=== PATIENT | female | born 1985 | race Caucasian/White ===

== ENCOUNTER 2017-11-21 16:09 | Emergency (ER) | payer MEDICAID ==
[~2017-11-21] VITALS: Ht 167.6 cm; Wt 106.7 kg
[~2017-11-21 16:09] MED LIST: GABA300C; MULT-464 PO; SUMA50TA3
[2017-11-21 16:35] LABS: BASOPHILS # (AUTO) 0.01 x10^3/uL (0-0.1); BASOPHILS % (AUTO) 0 % (0-1); EOSINOPHILS # (AUTO) 0.09 x10^3/uL (0-0.4); EOSINOPHILS % (AUTO) 1 % (1-7); LYMPHOCYTES # (AUTO) 1.63 x10^3/uL (1-3.4); LYMPHOCYTES % (AUTO) 17 % (22-44); MD NO; MEAN CORPUSCULAR HEMOGLOBIN 29.4 pg (27.0-34.8); MEAN CORPUSCULAR HGB CONC 34.3 g/dL (32.4-35.8); MEAN CORPUSCULAR VOLUME 85.8 fL (80-100); MEAN PLATELET VOLUME 8.9 fL (7.4-10.4); MONOCYTES # (AUTO) 0.29 x10^3/uL (0.2-0.8); MONOCYTES % (AUTO) 3 % (2-9); NEUTROPHILS # (AUTO) 7.52 x10^3/uL (1.8-6.8); NEUTROPHILS % (AUTO) 79 % (42-75); PLATELET COUNT 318 x10^3/uL (130-400); RED BLOOD COUNT 4.44 x10^6/uL (3.82-5.3); RED CELL DISTRIBUTION WIDTH 13.7 % (9.6-15.2)
[2017-11-21 16:46] LABS: ALANINE AMINOTRANSFERASE 15 U/L (12-78); ALBUMIN 2.5 g/dL (3.4-5.0); ANION GAP 9 mmol/L (5-15); CALCIUM 8.3 mg/dL (8.5-10.1); CHLORIDE 106 mmol/L (98-107); CREATININE 0.57 mg/dL (0.55-1.02)
[2017-11-21 17:03] LABS: ALKALINE PHOSPHATASE 122 U/L (45-117); BILIRUBIN,TOTAL 0.2 mg/dL (0.2-1.0); TOTAL PROTEIN 6.7 g/dL (6.4-8.2)
[2017-11-21 19:23] VITALS: BP 156/78
[2017-11-21 20:01] LABS: MICROSCOPIC AUTO
[2017-11-21 20:03] LABS: CULTURE INDICATED? YES
== END 2017-11-21 21:07 ==
LOC: ED 21:01
DX: O23.12 Infections of bladder in pregnancy, second trimester (principal); N30.90 Cystitis, unspecified without hematuria; Z3A.16 16 weeks gestation of pregnancy
CPT/HCPCS: 36415; 76815; 80053; 81001; 84702; 85025; 87086; 99285

== ENCOUNTER 2018-03-03 16:33 | Outpatient (CLI) | payer MEDICAID ==
[~2018-03-03] VITALS: Ht 167.6 cm; Wt 111.4 kg
[2018-03-03 17:01] VITALS: BP 112/66
[2018-03-03 18:06] LABS: MICROSCOPIC INDICATED
[2018-03-03] MEDS ORDERED: NITR100C56 PO (19:27)
== END 2018-03-03 19:41 | disposition home or self-care (01) ==
LOC: LDOP 16:33
PROVIDERS: ATTEND Student in an Organized Health Care Education/Training Program
DX: O26.899 Other specified pregnancy related conditions, unspecified trimester (principal); R25.2 Cramp and spasm; Z3A.00 Weeks of gestation of pregnancy not specified
CPT/HCPCS: 36415; 59025; 81001; 82731; 87086; 99211; G0463

== ENCOUNTER 2018-04-23 05:37 | Inpatient (IN) | payer MEDICAID ==
[~2018-04-23] VITALS: Ht 167.6 cm; Wt 125.0 kg
[~2018-04-23 05:37] MED LIST changes: +NITR100C56 PO
[2018-04-23] MEDS ORDERED: OXYTOCIN 30U/ 0.9% NaCL 500ML 500 ML IV SCH (05:41)
[2018-04-23] MEDS ORDERED: NEWBORN KIT ONE (05:42)
[2018-04-23] MEDS ORDERED: OXYTOCIN 30U/ 0.9% NaCL 500ML 0 ML ONE (05:43)
[2018-04-23] MEDS ORDERED: METOCLOPRAMIDE 5 MG/ML, 2ML ONE (05:43)
[2018-04-23] MEDS ORDERED: SODIUM CITRATE/CITRIC ACID 30 ML UDC ONE (05:43)
[2018-04-23] MEDS ORDERED: LACTATED RINGERS 1,000 ML IVBOLUS ONE (06:00)
[2018-04-23] MEDS ORDERED: ONDANSETRON 2MG/ML, 2ML IVPush ONE (06:00)
[2018-04-23] MEDS: LACTATED RINGERS 1,000 ML IV SCH ×8 (06:00→19:04)
[2018-04-23] MEDS ORDERED: METOCLOPRAMIDE 5 MG/ML, 2ML IV ONE (06:00)
[2018-04-23] MEDS ORDERED: PLEASE ENTER HEIGHT AND WEIGHT MC SCH (06:00)
[2018-04-23] MEDS ORDERED: CALCIUM CARBONATE 500 MG TAB.CHEW PO PRN (06:00)
[2018-04-23] MEDS ORDERED: SODIUM CITRATE/CITRIC ACID 30 ML UDC PO ONE (06:00)
[2018-04-23 06:09] LABS: BASOPHILS # (AUTO) 0.03 x10^3/uL (0-0.1); BASOPHILS % (AUTO) 0 % (0-1); EOSINOPHILS # (AUTO) 0.03 x10^3/uL (0-0.4); EOSINOPHILS % (AUTO) 0 % (1-7); LYMPHOCYTES # (AUTO) 1.64 x10^3/uL (1-3.4); LYMPHOCYTES % (AUTO) 22 % (22-44); MD NO; MEAN CORPUSCULAR HEMOGLOBIN 29.3 pg (27.0-34.8); MEAN CORPUSCULAR HGB CONC 34.4 g/dL (32.4-35.8); MEAN CORPUSCULAR VOLUME 85.2 fL (80-100); MEAN PLATELET VOLUME 10.7 fL (7.4-10.4); MONOCYTES # (AUTO) 0.33 x10^3/uL (0.2-0.8); MONOCYTES % (AUTO) 4 % (2-9); NEUTROPHILS # (AUTO) 5.35 x10^3/uL (1.8-6.8); NEUTROPHILS % (AUTO) 73 % (42-75); PLATELET COUNT 226 x10^3/uL (130-400); RED BLOOD COUNT 4.21 x10^6/uL (3.82-5.3); RED CELL DISTRIBUTION WIDTH 15.3 % (9.6-15.2)
[2018-04-23 06:21] LABS: ALANINE AMINOTRANSFERASE 15 U/L (12-78); ANION GAP 11 mmol/L (5-15); CALCIUM 8.3 mg/dL (8.5-10.1); CHLORIDE 111 mmol/L (98-107); CREATININE 0.65 mg/dL (0.55-1.02)
[2018-04-23 06:23] LABS: ALKALINE PHOSPHATASE 223 U/L (45-117); BILIRUBIN,TOTAL 0.2 mg/dL (0.2-1.0); TOTAL PROTEIN 6.3 g/dL (6.4-8.2)
[2018-04-23 06:25] LABS: BILIRUBIN, DIRECT < 0.1 mg/dL (0.1-0.2)
[2018-04-23 06:32] LABS: CULTURE INDICATED? YES; MICROSCOPIC INDICATED
[2018-04-23 06:42] LABS: AMPHETAMINE SCREEN, URINE Negative (Negative); BARBITURATE SCREEN, URINE Negative (Negative); BENZODIAZEPINE SCREEN, URINE Negative (Negative); CANNABINOID SCREEN, URINE Positive (Negative); COCAINE SCREEN, URINE Negative (Negative); METHADONE SCREEN, URINE Negative (Negative); OPIATE SCREEN, URINE Negative (Negative)
[2018-04-23 06:48] LABS: HEMOGLOBIN A1C 5.3 % (4.2-6.3)
[2018-04-23] MEDS ORDERED: OXYTOCIN 30U/ 0.9% NaCL 500ML 500 ML ONE (07:06)
[2018-04-23] MEDS ORDERED: MISOPROSTOL 200 MCG TABLET ONE (07:10)
[2018-04-23] MEDS ORDERED: EPHEDRINE 50 MG/ML, 1ML IVPush PRN (07:30)
[2018-04-23] MEDS ORDERED: hydrALAzine 20 MG/ML, 1ML IV PRN (07:30)
[2018-04-23] MEDS ORDERED: MEPERIDINE/PF 25MG/0.5ML IVPush PRN (07:30)
[2018-04-23] MEDS ORDERED: LABETALOL 5MG/ML, 20ML IV PRN (07:30)
[2018-04-23] MEDS ORDERED: OXYcodone 5 MG/5 ML ORAL.SOL UDC PO PRN (07:30)
[2018-04-23] MEDS ORDERED: ONDANSETRON ODT 8 MG PO PRN (07:30)
[2018-04-23] MEDS ORDERED: FENTANYL PF 100 MCG/2ML IV PRN (07:30)
[2018-04-23] MEDS ORDERED: ONDANSETRON 2MG/ML, 2ML IV PRN ×2 (07:30→09:30)
[2018-04-23] MEDS ORDERED: KETOROLAC 30 MG/1 ML ONE (07:38)
[2018-04-23] MEDS ORDERED: EPHEDRINE 50 MG/ML, 1ML ONE (08:39)
[2018-04-23] MEDS ORDERED: CEFAZOLIN 1,000 MG ONE (08:39)
[2018-04-23] MEDS ORDERED: EPINEPHRINE SYRINGE 0.1 MG/ML, 10ML ONE (08:39)
[2018-04-23] MEDS ORDERED: OXYTOCIN 10 UNITS/ML, 1ML ONE (08:39)
[2018-04-23] MEDS: OXYTOCIN 30U/ 0.9% NaCL 500ML 500 ML IV SCH ×2 (09:04→19:04)
[2018-04-23] MEDS ORDERED: METOCLOPRAMIDE 5 MG/ML, 2ML IV PRN (09:30)
[2018-04-23] MEDS ORDERED: KETOROLAC 30 MG/1 ML IM SCH (09:30)
[2018-04-23] MEDS ORDERED: MISOPROSTOL 200 MCG TABLET PR PRN (09:30)
[2018-04-23] MEDS ORDERED: IBUPROFEN 800 MG TABLET PO PRN (09:30)
[2018-04-23] MEDS ORDERED: CARBOPROST TROMETHAMINE 250 MCG/ML, 1ML IM PRN (09:30)
[2018-04-23] MEDS ORDERED: GLYCERIN ADULT SUPP PR PRN (09:30)
[2018-04-23] MEDS ORDERED: BISACODYL 10 MG SUPP PR PRN (09:30)
[2018-04-23] MEDS ORDERED: MORPHINE SULFATE 4 MG/ML, 1ML ONE ×2 (09:32→10:52)
[2018-04-23] MEDS ORDERED: OXYcodone 5 MG/5 ML ORAL.SOL UDC ONE (09:32)
[2018-04-23] MEDS: MORPHINE SULFATE 4 MG/ML, 1ML IVPush PRN ×2 (09:34→10:57)
[2018-04-23 11:10] VITALS: BP 136/89
[2018-04-23] MEDS: OXYcodone IR 5MG TABLET PO PRN ×3 (12:04→20:58)
[2018-04-23] MEDS: KETOROLAC 30 MG/1 ML IV SCH ×3 (13:32→19:50)
[2018-04-23 16:00] VITALS: BP 138/88
[2018-04-23 16:23] LABS: BASOPHILS # (AUTO) 0.02 x10^3/uL (0-0.1); BASOPHILS % (AUTO) 0 % (0-1); EOSINOPHILS % (AUTO) 0 % (1-7); LYMPHOCYTES # (AUTO) 1.27 x10^3/uL (1-3.4); LYMPHOCYTES % (AUTO) 14 % (22-44); MD NO; MEAN CORPUSCULAR HEMOGLOBIN 28.8 pg (27.0-34.8); MEAN CORPUSCULAR HGB CONC 33.5 g/dL (32.4-35.8); MEAN CORPUSCULAR VOLUME 86.2 fL (80-100); MEAN PLATELET VOLUME 10.5 fL (7.4-10.4); MONOCYTES # (AUTO) 0.51 x10^3/uL (0.2-0.8); MONOCYTES % (AUTO) 6 % (2-9); NEUTROPHILS # (AUTO) 7.22 x10^3/uL (1.8-6.8); NEUTROPHILS % (AUTO) 80 % (42-75); PLATELET COUNT 203 x10^3/uL (130-400); RED BLOOD COUNT 4.03 x10^6/uL (3.82-5.3); RED CELL DISTRIBUTION WIDTH 15.6 % (9.6-15.2)
[2018-04-23] MEDS: morphine SULFATE 10 MG/ML, 1ML IVPush PRN (18:43)
[2018-04-23 19:45] VITALS: BP 156/88
[2018-04-23] MEDS: DOCUSATE 100 MG CAPSULE PO PRN (19:50)
[2018-04-23] MEDS: ACETAMINOPHEN 325 MG TABLET PO PRN (20:58)
[2018-04-23] MEDS: ONDANSETRON ODT 4 MG PO PRN (21:05)
[2018-04-23] MEDS ORDERED: RHOGAM FROM BLOOD BANK 1 NOTE EA IM/IV ONE (22:00)
[2018-04-23 23:59] VITALS: BP 129/80
[2018-04-24] MEDS: LACTATED RINGERS 1,000 ML IV SCH ×5 (01:04→17:04)
[2018-04-24] MEDS: ACETAMINOPHEN 325 MG TABLET PO PRN ×2 (01:32→20:11)
[2018-04-24] MEDS: KETOROLAC 30 MG/1 ML IV SCH ×4 (01:32→20:12)
[2018-04-24] MEDS: OXYcodone IR 5MG TABLET PO PRN ×5 (01:32→20:12)
[2018-04-24 04:15] VITALS: BP 148/89
[2018-04-24] MEDS: morphine SULFATE 10 MG/ML, 1ML IVPush PRN (04:34)
[2018-04-24] MEDS: OXYTOCIN 30U/ 0.9% NaCL 500ML 500 ML IV SCH ×2 (05:04→15:04)
[2018-04-24] MEDS: ONDANSETRON ODT 4 MG PO PRN (06:08)
[2018-04-24 07:00] VITALS: BP 129/86
[2018-04-24] MEDS: PRENATAL VIT/IRON/FA 1 EACH TABLET PO SCH (07:39)
[2018-04-24] MEDS: DOCUSATE 100 MG CAPSULE PO PRN ×2 (07:39→20:11)
[2018-04-24 09:45] VITALS: BP 150/95
[2018-04-24 10:45] VITALS: BP 152/99
[2018-04-24 15:45] VITALS: BP 140/98
[2018-04-24 20:00] VITALS: BP 164/89
[2018-04-24] MEDS ORDERED: SIMETHICONE 80 MG CHEW TAB ONE (23:23)
[2018-04-24] MEDS: SIMETHICONE 80 MG CHEW TAB PO PRN (23:27)
[2018-04-25] VITALS (9 sets, daily range): BP systolic 138–169; BP diastolic 81–117
[2018-04-25] MEDS: OXYcodone IR 5MG TABLET PO PRN ×6 (00:38→20:33)
[2018-04-25] MEDS: LACTATED RINGERS 1,000 ML IV SCH ×6 (01:04→15:06)
[2018-04-25] MEDS: OXYTOCIN 30U/ 0.9% NaCL 500ML 500 ML IV SCH ×3 (01:04→17:25)
[2018-04-25] MEDS: KETOROLAC 30 MG/1 ML IV SCH (03:09)
[2018-04-25] MEDS: ACETAMINOPHEN 325 MG TABLET PO PRN ×4 (03:09→20:33)
[2018-04-25] MEDS ORDERED: IBUPROFEN 600 MG TABLET PO PRN (09:00)
[2018-04-25] MEDS: PRENATAL VIT/IRON/FA 1 EACH TABLET PO SCH (09:07)
[2018-04-25] MEDS: DOCUSATE 100 MG CAPSULE PO PRN ×2 (09:08→20:32)
[2018-04-25] MEDS: SIMETHICONE 80 MG CHEW TAB PO PRN ×2 (09:08→16:17)
[2018-04-25] MEDS ORDERED: LABETALOL 200 MG TABLET PO ONE (12:59)
[2018-04-25] MEDS ORDERED: LABETALOL 200 MG TABLET ONE (13:11)
[2018-04-25 13:51] LABS: ANION GAP 11 mmol/L (5-15); CHLORIDE 105 mmol/L (98-107)
[2018-04-25 13:52] LABS: BASOPHILS # (AUTO) 0.04 x10^3/uL (0-0.1); BASOPHILS % (AUTO) 0 % (0-1); EOSINOPHILS # (AUTO) 0.13 x10^3/uL (0-0.4); EOSINOPHILS % (AUTO) 1 % (1-7); LYMPHOCYTES # (AUTO) 1.04 x10^3/uL (1-3.4); LYMPHOCYTES % (AUTO) 10 % (22-44); MD NO; MEAN CORPUSCULAR HEMOGLOBIN 29.7 pg (27.0-34.8); MEAN CORPUSCULAR HGB CONC 34.2 g/dL (32.4-35.8); MEAN PLATELET VOLUME 9.7 fL (7.4-10.4); MONOCYTES # (AUTO) 0.35 x10^3/uL (0.2-0.8); MONOCYTES % (AUTO) 4 % (2-9); NEUTROPHILS % (AUTO) 85 % (42-75); PLATELET COUNT 242 x10^3/uL (130-400); RED CELL DISTRIBUTION WIDTH 15.6 % (9.6-15.2)
[2018-04-25 13:56] LABS: ALANINE AMINOTRANSFERASE 16 U/L (12-78); ALKALINE PHOSPHATASE 232 U/L (45-117); BILIRUBIN,TOTAL 0.1 mg/dL (0.2-1.0); CALCIUM 8.8 mg/dL (8.5-10.1); CREATININE 0.64 mg/dL (0.55-1.02); TOTAL PROTEIN 6.4 g/dL (6.4-8.2)
[2018-04-25 13:59] LABS: BILIRUBIN, DIRECT < 0.1 mg/dL (0.1-0.2)
[2018-04-25 15:34] LABS: MICROSCOPIC INDICATED
[2018-04-25 15:55] LABS: CREATININE,URINE RANDOM 30.8 mg/dL
[2018-04-25] MEDS ORDERED: LABETALOL 200 MG TABLET PO SCH (18:00)
[2018-04-25] MEDS ORDERED: LABETALOL 100 MG TABLET ONE (20:29)
[2018-04-25] MEDS ORDERED: LABETALOL 100 MG TABLET PO ONE (20:30)
[2018-04-25] MEDS ORDERED: SODIUM CHLORIDE 0.45% 1,000 ML IV PRN (20:57)
[2018-04-25] MEDS ORDERED: LACTATED RINGERS 1,000 ML IV PRN (20:57)
[2018-04-25] MEDS ORDERED: MAGNESIUM SULFATE PMX 4GM/100M 100 ML IVPB ONE (21:00)
[2018-04-25] MEDS ORDERED: MAGNESIUM SULF. PMX 20GM/500ML 500 ML IV ONE ×2 (21:17→22:38)
[2018-04-25 21:38] LABS: BASOPHILS # (AUTO) 0.01 x10^3/uL (0-0.1); BASOPHILS % (AUTO) 0 % (0-1); EOSINOPHILS # (AUTO) 0.14 x10^3/uL (0-0.4); EOSINOPHILS % (AUTO) 2 % (1-7); LYMPHOCYTES # (AUTO) 1.45 x10^3/uL (1-3.4); LYMPHOCYTES % (AUTO) 16 % (22-44); MD NO; MEAN CORPUSCULAR HEMOGLOBIN 29.3 pg (27.0-34.8); MEAN CORPUSCULAR HGB CONC 33.4 g/dL (32.4-35.8); MEAN CORPUSCULAR VOLUME 87.8 fL (80-100); MEAN PLATELET VOLUME 9.7 fL (7.4-10.4); MONOCYTES # (AUTO) 0.44 x10^3/uL (0.2-0.8); MONOCYTES % (AUTO) 5 % (2-9); NEUTROPHILS # (AUTO) 7.11 x10^3/uL (1.8-6.8); NEUTROPHILS % (AUTO) 78 % (42-75); PLATELET COUNT 259 x10^3/uL (130-400); RED BLOOD COUNT 3.64 x10^6/uL (3.82-5.3); RED CELL DISTRIBUTION WIDTH 15.5 % (9.6-15.2)
[2018-04-25 21:51] LABS: ALANINE AMINOTRANSFERASE 18 U/L (12-78); ALBUMIN 1.9 g/dL (3.4-5.0); ANION GAP 11 mmol/L (5-15); CALCIUM 8.7 mg/dL (8.5-10.1); CHLORIDE 105 mmol/L (98-107); CREATININE 0.62 mg/dL (0.55-1.02)
[2018-04-25 21:53] LABS: ALKALINE PHOSPHATASE 221 U/L (45-117); BILIRUBIN,TOTAL 0.2 mg/dL (0.2-1.0); TOTAL PROTEIN 6.1 g/dL (6.4-8.2)
[2018-04-25] MEDS: MAGNESIUM SULF. PMX 20GM/500ML 500 ML IV SCH (22:42)
[2018-04-26] VITALS (7 sets, daily range): BP systolic 122–149; BP diastolic 67–89
[2018-04-26] MEDS ORDERED: LABETALOL 100 MG TABLET ONE ×3 (00:56→20:51)
[2018-04-26] MEDS: LABETALOL 100 MG TABLET PO SCH ×2 (00:58→21:01)
[2018-04-26] MEDS ORDERED: OXYcodone/APAP 5/325MG TABLET ONE ×2 (01:06→15:56)
[2018-04-26] MEDS: OXYcodone/APAP 5/325MG TABLET PO PRN ×3 (01:08→21:58)
[2018-04-26] MEDS ORDERED: morphine SULFATE 10 MG/ML, 1ML ONE (02:36)
[2018-04-26] MEDS: morphine SULFATE 10 MG/ML, 1ML IVPush PRN (02:45)
[2018-04-26] MEDS ORDERED: OXYcodone/APAP 10/325MG TABLET ONE ×4 (05:05→09:24)
[2018-04-26] MEDS ORDERED: OXYcodone IR 5MG TABLET ONE (05:11)
[2018-04-26] MEDS: LACTATED RINGERS 1,000 ML IV SCH ×5 (06:05→17:04)
[2018-04-26] MEDS: OXYTOCIN 30U/ 0.9% NaCL 500ML 500 ML IV SCH ×2 (07:04→17:04)
[2018-04-26] MEDS: MAGNESIUM SULF. PMX 20GM/500ML 500 ML IV SCH ×2 (07:47→17:45)
[2018-04-26] MEDS: PRENATAL VIT/IRON/FA 1 EACH TABLET PO SCH (09:00)
[2018-04-26] MEDS: OXYcodone IR 5MG TABLET PO PRN (09:31)
[2018-04-26] MEDS ORDERED: MAGNESIUM SULF. PMX 20GM/500ML 500 ML IV ONE (17:38)
[2018-04-26] MEDS ORDERED: SUMATRIPTAN 50 MG TABLET PO PRN (20:30)
[2018-04-26] MEDS ORDERED: LABETALOL 200 MG TABLET ONE ×2 (20:51)
[2018-04-27 00:38] VITALS: BP 119/79
[2018-04-27] MEDS: LACTATED RINGERS 1,000 ML IV SCH ×3 (01:04→09:04)
[2018-04-27] MEDS: SIMETHICONE 80 MG CHEW TAB PO PRN (01:10)
[2018-04-27] MEDS: OXYcodone IR 5MG TABLET PO PRN ×3 (01:10→11:09)
[2018-04-27] MEDS: OXYTOCIN 30U/ 0.9% NaCL 500ML 500 ML IV SCH (03:04)
[2018-04-27 04:04] VITALS: BP 123/68
[2018-04-27 07:15] VITALS: BP 137/91
[2018-04-27] MEDS: DOCUSATE 100 MG CAPSULE PO PRN (08:05)
[2018-04-27] MEDS: LABETALOL 100 MG TABLET PO SCH (08:05)
[2018-04-27] MEDS: PRENATAL VIT/IRON/FA 1 EACH TABLET PO SCH (08:05)
[2018-04-27] MEDS ORDERED: LABE100T3 PO (12:29)
[2018-04-27] MEDS ORDERED: OXYC-302 PO (12:29)
== END 2018-04-27 13:45 | disposition home or self-care (01) | DRG 765 ==
LOC: LDIP 05:37 → 2NW 11:09 → 2NE 04-26 00:17 → 2NW 04-26 21:34
PROVIDERS: ADMIT Student in an Organized Health Care Education/Training Program; ATTEND Student in an Organized Health Care Education/Training Program
PROC: 10D00Z1 Extraction of Products of Conception, Low, Open Approach (ICD-10-PCS; principal; 2018-04-23)
PROC: 0UB70ZZ Excision of Bilateral Fallopian Tubes, Open Approach (ICD-10-PCS; 2018-04-23)
PROC: 30233S1 Transfusion of Nonautologous Globulin into Peripheral Vein, Percutaneous Approach (ICD-10-PCS; 2018-04-23)
DX: O34.211 Maternal care for low transverse scar from previous cesarean delivery (principal); O30.043 Twin pregnancy, dichorionic/diamniotic, third trimester; Z37.2 Twins, both liveborn; O14.14 Severe pre-eclampsia complicating childbirth; Z30.2 Encounter for sterilization; Z3A.37 37 weeks gestation of pregnancy; Z91.19 Patient's noncompliance with other medical treatment and regimen
CPT/HCPCS: 36415; J2790; 80053; 80307; 81001; 82248; 82570; 83036; 83735; 84156; 84550; 85025; 85461; 86850; 86900; 87086; 88302; 88307; 93005; J0690; J1885; Q0162; J2270; J2590; J2765; J3475; J7120